=== PATIENT | female | born 1965 | race Caucasian/White ===

== ENCOUNTER 2022-10-16 06:14 | Day surgery (SDC) | payer BC ==
[2022-09-18 16:11] VITALS: BMI 29.1
[2022-10-16] MEDS ORDERED: PROPOFOL 20 ML ONE ×2 (07:12→07:13)
[2022-10-16] MEDS ORDERED: Lidocaine 1% PF 5 ML VIAL ONE (07:14)
== END 2022-10-16 09:18 | disposition home or self-care (01) ==
LOC: CSHSDC 06:14
PROVIDERS: ATTEND Internal Medicine Gastroenterology
PROC: 0DJD8ZZ Inspection of Lower Intestinal Tract, Via Natural or Artificial Opening Endoscopic (ICD-10-PCS; principal; 2022-10-16)
DX: K57.30 Diverticulosis of large intestine without perforation or abscess without bleeding (principal); K64.8 Other hemorrhoids; K63.89 Other specified diseases of intestine; K62.89 Other specified diseases of anus and rectum; I10 Essential (primary) hypertension
CPT/HCPCS: J2704